=== PATIENT | male | born 1970 | race Caucasian/White ===

== ENCOUNTER 2016-12-14 06:01 | Day surgery (SDC) | payer OTHER ==
[~2016-12-14 06:01] MED LIST: ACETAMINOPHEN500 M1; BUSPAR10 MG; NORVASC5 MG
[2016-12-14 06:36] LABS: HEMATOCRIT 41.6 % (42.0-54.0); HEMOGLOBIN 14.3 g/dL (13.5-17.5); MCH 30.6 pg (26.0-34.0); MCHC 34.4 g/dL (31.0-37.0); MCV 88.9 fL (80.0-100.0); RBC 4.68 10x6/uL (4.20-6.10); RDW 13.3 % (11.5-14.5); WBC 9.8 10x3/uL (4.8-10.8)
[2016-12-14 08:32] VITALS: BP 125/78; BMI 27.2
[2016-12-14] MEDS ORDERED: LISINOPRIL10 MG PO (08:54)
[2016-12-14] MEDS ORDERED: BACTRIM DS TABL1 TAB PO (09:04)
[2016-12-14] MEDS ORDERED: ZPAK PO (09:06)
[2016-12-14] MEDS ORDERED: NAPROXEN375 M1 PO (09:07)
[2016-12-14] MEDS ORDERED: VALISONE 0.1 %15 GM TOPICAL (09:08)
[2016-12-14] MEDS ORDERED: CYMBALTA20 MG PO (09:09)
[2016-12-14] MEDS ORDERED: ZYRTEC10 MG PO (09:09)
--- NOTE | 2016-12-14 15:48 | NUR ---
1430 IV DC WITH CATHER TIP INTACT
--- NOTE | 2016-12-19 10:17 | OP ---
PATIENT NAME: BORIS OLIVER MEDICAL RECORD: [id number] :74 LOCATION:[facility] ADMISSION DATE: SURGEON: VAMSHI BERNARD MD DATE OF OPERATION: 12/14/2016 PREOPERATIVE DIAGNOSIS: Right buttock abscess. POSTOPERATIVE DIAGNOSIS: Right buttock abscess. PROCEDURES: Excisional debridement of right buttock abscess with marsupialization of wound and packing. Dimensions of the debridement, including margins, measured 2.4 cm x 2.5 cm and was 2.8 cm in depth. This was a cavitary lesion. The risks, possible complications and alternatives to procedure were explained to the patient. He elects to proceed. OPERATIVE COURSE: The patient was conveyed to the operating room electively on 12/14/2016. General anesthesia was induced by the anesthesia staff. The patient was placed in a prone position. The right buttock was sterilely prepped and draped. Utilizing the electrocautery, I excised a plug of skin, subcutaneous tissue as well as a portion of the abscess cavity. I then curetted out the abscess cavity. Deep cultures were obtained. Some blunt dissection with by finger was performed as well. Meticulous hemostasis was achieved with the electrocautery as well as with hydrogen peroxide irrigation. I then marsupialized the wound with a running locking 3-0 Vicryl Rapide suture. I then packed the wound with 1-inch iodoform gauze that had knots tied in it. A sterile dressing was applied. I am going to plan for the patient to be dismissed back to the [facility]. We will reschedule his inguinal hernia repair for sometime in the future. I would like to have the packing removed in 3 days. Saline wet to dry dressing changes can then be instituted daily. TRANSINT:[id number] Voice Confirmation ID: [id number] DOCUMENT ID: [id number] 12/14/2016 Cannot locate fax for VAMSHI Benitez MD at 1017 CC: VAMSHI NUNEZ MD, JOLYNN GAMING MD and SIN CROOKS [id number] DICTATION DATE: 12/14/16 1320 SEMIAUTOMATIC STITCHER OPERATOR: 12/14/16 1410 [facility] 12/14/16 [place] [id number] [place] [id number]
--- NOTE | 2016-12-19 10:17 | HP ---
PATIENT: BORIS OLIVER MEDICAL RECORD: [id number] ACCOUNT: [id number] LOCATION:[facility] : 74 ADMISSION DATE: 12/14/16 HISTORY AND PHYSICAL EXAMINATION CHIEF COMPLAINT: Spider bite. HISTORY OF PRESENT ILLNESS: The patient was to undergo an open left inguinal hernia repair with mesh today. He is currently being treated for a buttock abscess. I have examined him and I believe that the buttock abscess requires debridement. I have contacted Dr. Lindsay by phone and she concurs. I am not going to place a piece of mesh in the patient's inguinal area as I think that it would likely become infected secondarily due to bacteremia. Also, I will plan for an excisional debridement with marsupialization and packing of the right buttock abscess. MEDICINES AT THE HALFWAY: Currently, he has been started on Bactrim as well as lisinopril and naproxen sodium. ALLERGIES: PENICILLIN. PAST MEDICAL AND SURGICAL HISTORY: Hepatitis C, left inguinal hernia, seizures, hypertension and behavioral disorder. PHYSICAL EXAMINATION: GENERAL: The patient does not appear acutely ill. He does not appear chronically ill. VITAL SIGNS: Reviewed. HEAD: External ears appear normal. EYES: Extraocular movements are intact. NECK: Trachea is midline. CHEST: No intercostal retractions. PULMONARY: Nonlabored, no stridor. ABDOMEN: Nontender. IMPRESSION: Right buttock abscess. PLAN: Excisional debridement as described above. TRANSINT:[id number] Voice Confirmation ID: [id number] DOCUMENT ID: [id number] CC: Cannot locate VAMSHI Lundy MD at 1017 CC: VAMSHI NUNEZ MD, JOLYNN GAMING MD and SIN LINDSAY [id number] DICTATION DATE: 12/14/16 0959 WELL LOGGING CAPTAIN: 12/14/16 1107 [facility] 12/14/16 [facility] [address] [place] [address]
[2016-12-22 20:07] LABS: AEROBE ID Final report (()); RESULT 1 Pantoea agglomerans (())
== END 2016-12-14 15:00 | disposition home or self-care (01) ==
LOC: D.OPS 06:01
PROVIDERS: Anesthesiology; Surgery
DX: L02.31 Cutaneous abscess of buttock (principal); J45.909 Unspecified asthma, uncomplicated; I10 Essential (primary) hypertension; K21.9 Gastro-esophageal reflux disease without esophagitis; Z87.891 Personal history of nicotine dependence; Z01.812 Encounter for preprocedural laboratory examination

== ENCOUNTER 2017-05-15 05:05 | Day surgery (SDC) | payer OTHER ==
[~2017-05-15] VITALS: Ht 182.9 cm; Wt 97.5 kg
--- NOTE | ~2017-05-15 | OP ---
PATIENT NAME: BORIS OLIVER MEDICAL RECORD: [id number] :74 LOCATION:[facility] ADMISSION DATE: SURGEON: GONZALEZ BERNARD MD DATE OF OPERATION: 05/15/2017 PREOPERATIVE DIAGNOSIS: Symptomatic left inguinal hernia. POSTOPERATIVE DIAGNOSES: 1. Symptomatic direct left inguinal hernia. 2. Left cord lipoma. PROCEDURES: 1. Open left inguinal hernia repair with bilayer polypropylene preperitoneal mesh. 2. Excision of left cord lipoma. SURGEON: Gonzalez Bernard MD GLUING MACHINE OPERATOR ELECTRONIC: None. BLOOD LOSS: Minimal. ANESTHESIA: General. COMPLICATIONS: None. The risks, possible complications and alternatives to procedure were explained to the patient. He elects to proceed. OPERATIVE COURSE: The patient was conveyed to the operating room electively on 05/15/2017. General anesthesia was induced by the anesthesia staff. The abdomen and genitals were sterilely prepped and draped. A transverse incision was accomplished in the left lower quadrant. Sharp dissection was carried down through skin and subcutaneous tissue as well as Kadi fascia. I then sharply cleaned overlying connective tissue from the external oblique aponeurosis. I dissected down through the internal oblique and transversus abdominis muscles. A preperitoneal pocket was fashioned bluntly. I reduced a direct hernia. There was no indirect component. No femoral component. I cut 2 ovals out of a polypropylene mesh. The 2 ovals were sutured together one on top of the other with a running #1 Surgidac. A large cord lipoma was excised with electrocautery. I placed the mesh in the preperitoneal space. Once I was satisfied with placement of the mesh, I allowed the internal oblique and transversus abdominis muscle layers to come together and I sutured them together with multiple interrupted horizontal mattress 0 Surgidac, incorporating a portion of the mesh with this closure. The external oblique aponeurosis was closed with running #1 Vicryls. The Kadi's fascia was approximated with interrupted 3-0 Vicryls. The subdermis was approximated with interrupted 3-0 Vicryls. The skin was approximated with a running intracuticular 3-0 Vicryl. Benzoin and Steri-Strips were applied. The patient was then extubated and conveyed to post-anesthesia care unit where he was in stable condition. He will be dismissed back to [facility] with hydrocodone for pain. There is no need for him to see me in the office unless he develops a complication related to this operative procedure. OPERATIVE REPORT [id number] BORIS OLIVER TRANSINT:[id number] Voice Confirmation ID: [id number] DOCUMENT ID: [id number] GONZALEZ BERNARD MD at 1042 CC: [id number] DICTATION DATE: 05/15/17 1008 INDUSTRIAL ORDER CLERK: 05/15/17 1107 [facility] 05/15/[address] [id number]
[~2017-05-15 05:05] MED LIST changes: +BACTRIM DS TABL1 TAB PO; +CYMBALTA20 MG PO; +LISINOPRIL10 MG PO; +NAPROXEN375 M1 PO; +VALISONE 0.1 %15 GM TOPICAL; +ZPAK PO; +ZYRTEC10 MG PO
[2017-05-15] MEDS ORDERED: NORTRIPTYLINE H50 MG PO (07:04)
[2017-05-15 07:14] VITALS: BP 134/86; Ht 182.9 cm; Wt 97.5 kg
[2017-05-15 07:42] LABS: HEMATOCRIT 41.2 % (42.0-54.0); HEMOGLOBIN 14.4 g/dL (13.5-17.5); MCV 88.8 fL (80.0-100.0); MEAN PLATELET VOLUME 12.2 fL (7.4-10.4); RBC 4.64 10x6/uL (4.20-6.10); RDW 12.6 % (11.5-14.5); WBC 5.7 10x3/uL (4.8-10.8)
[2017-05-15 07:55] LABS: ALBUMIN 3.5 g/dL (3.4-5.0); ALKALINE PHOSPHATASE 66 U/L (46-116); ALT (SGPT) 412 U/L (10-68); APTT 32.7 SECONDS (22.8-39.4); BILIRUBIN - TOTAL 0.95 mg/dL (0.2-1.3); CALC OSMOLALITY 282 mosm/kg (275-300); CALCIUM 8.8 mg/dL (8.5-10.1); CARBON DIOXIDE 26.4 mmol/L (21.0-32.0); CHLORIDE - SERUM 106 mmol/L (98-107); GLUCOSE 81 mg/dL (74-106); INR 1.23 (0.85-1.17); POTASSIUM - SERUM 3.8 mmol/L (3.5-5.1); PROTEIN - SERUM 6.9 g/dL (6.4-8.2); SODIUM 142 mmol/L (136-145); UREA NITROGEN 14 mg/dL (7-18); eGFR NON AFRICAN AMERICAN 86 mL/min (90-120)
== END 2017-05-15 12:10 | disposition home or self-care (01) ==
LOC: D.OPS 05:05
PROVIDERS: Anesthesiology
DX: K40.90 Unilateral inguinal hernia, without obstruction or gangrene, not specified as recurrent (principal); D17.6 Benign lipomatous neoplasm of spermatic cord; Z01.812 Encounter for preprocedural laboratory examination